=== PATIENT | male | born 1935 | race American Indian/Alaskan Native ===

== ENCOUNTER 2017-03-29 13:45 | Outpatient (CLI) | payer MEDICARE ==
[2017-03-29 14:25] LABS: Blood Urea Nitrogen 17 mg/dL (9-20)
--- NOTE | 2017-03-29 15:43 | Magnetic Resonance Report ---
MRI of the lumbar spine with and without contrast. History: Back pain, history of prostate cancer. Procedure: Sagittal T1-weighted, T2-weighted, inversion recovery images, axial T1 and T2-weighted images, and post gadolinium sagittal and axial T1-weighted images with fat saturation were used in the study. Findings: The T12-L1 and L1-2 levels are unremarkable. At the L2-3 level, there is a mild broad-based disc bulge, slightly eccentric to the left with left foraminal stenosis. At the L3-4 level, there is a moderate broad-based disc bulge with severe ligamentum flavum hypertrophy and mild facet joint DJD resulting in severe central canal stenosis. The AP dimension of the spinal canal at the disc level is 5 mm. Moderate disc space narrowing is present. At the L4-5 level, there is severe disc space narrowing with a broad-based disc bulge and ligamentum flavum hypertrophy. Again, there is severe central canal stenosis. At L5-S1, there is a mild central disc protrusion with no spinal stenosis or significant effacement of the subarachnoid space. On the postcontrast study, there are multiple areas of enhancement, primarily reactive at the endplates and adjacent to several Schmorl's nodes. No convincing metastatic pattern is present. The conus appears normal. Impression: 1. Severe central canal stenosis at the L3-4 and L4-5 levels related to disc bulges and posterior ligamentous hypertrophy. Mild discogenic changes are seen at L2-3 and L5-S1. 2. No evidence of compression fractures or other evidence of metastatic disease. Signal changes and scattered areas of enhancement in the vertebral bodies, especially at the endplates, are consistent with reactive discogenic changes.
== END 2017-03-29 13:46 | disposition home or self-care (01) ==
LOC: MRI 13:45
PROVIDERS: ATTEND Internal Medicine
DX: M48.06 Spinal stenosis, lumbar region (principal); M47.896 Other spondylosis, lumbar region
CPT/HCPCS: 36415; 72158; 82565; 84520; A9577

== ENCOUNTER 2018-12-05 09:27 | Outpatient (CLI) | payer MEDICARE ==
[2018-12-05 10:43] LABS: Hematocrit 34.5 % (35.5-45.6); Hemoglobin 11.8 gm/dl (11.8-15.2); Mean Corpuscular HGB Conc 34 % (32-34); Mean Corpuscular Volume 89 fl (84-94); Platelet Count 266 K/mm3 (140-440); Red Blood Count 3.87 M/mm3 (3.65-5.03); Red Cell Distribution Width 13.9 % (13.2-15.2)
[2018-12-05 11:14] LABS: Alanine Aminotransferase 12 units/L (7-56); Albumin 4.2 g/dL (3.9-5); BUN/Creatinine Ratio 19; Blood Urea Nitrogen 17 mg/dL (9-20); Calcium 9.5 mg/dL (8.4-10.2); Chol/HDL Ratio 3.79 %; HDL Cholesterol 58 mg/dL (40-59); Hemolysis Index 7; LDL Cholesterol,Direct 171 mg/dL (50-130)
== END 2018-12-05 09:28 | disposition home or self-care (01) ==
LOC: LAB 09:27
PROVIDERS: ATTEND Internal Medicine
DX: E03.9 Hypothyroidism, unspecified (principal); E78.2 Mixed hyperlipidemia; R73.03 Prediabetes; D64.9 Anemia, unspecified; I10 Essential (primary) hypertension
CPT/HCPCS: 36415; 80053; 80061; 82728; 83036; 84443; 85027

== ENCOUNTER 2019-04-18 09:04 | Outpatient (CLI) | payer MEDICARE ==
[2019-04-18 10:21] LABS: Chol/HDL Ratio 2.47 %
== END 2019-04-18 09:05 | disposition home or self-care (01) ==
LOC: LAB 09:04
PROVIDERS: ATTEND Internal Medicine
DX: E03.9 Hypothyroidism, unspecified (principal); E78.2 Mixed hyperlipidemia; I10 Essential (primary) hypertension; Z98.890 Other specified postprocedural states; Z90.79 Acquired absence of other genital organ(s)
CPT/HCPCS: 36415; 80061; 84443

== ENCOUNTER 2020-01-24 09:11 | Outpatient (CLI) | payer MEDICARE ==
[2020-01-24 10:07] LABS: Basophils # (Auto) 0.1 K/mm3 (0.0-0.1); Basophils % (Auto) 1.2 % (0.0-1.8); Eosinophils # (Auto) 0.2 K/mm3 (0.0-0.4); Eosinophils % (Auto) 3.4 % (0.0-4.3); Hematocrit 33.2 % (35.5-45.6); Hemoglobin 11.6 gm/dl (11.8-15.2); Lymphocytes # (Auto) 1.8 K/mm3 (1.2-5.4); Lymphocytes % (Auto) 28.7 % (13.4-35.0); Mean Corpuscular HGB Conc 35 % (32-34); Mean Corpuscular Volume 91 fl (84-94); Monocytes # (Auto) 0.7 K/mm3 (0.0-0.8); Monocytes % (Auto) 11.7 % (0.0-7.3); Platelet Count 256 K/mm3 (140-440); Red Blood Count 3.67 M/mm3 (3.65-5.03); Red Cell Distribution Width 14.1 % (13.2-15.2)
[2020-01-24 10:31] LABS: Alanine Aminotransferase 14 units/L (7-56); Albumin 4.1 g/dL (3.9-5); BUN/Creatinine Ratio 23; Blood Urea Nitrogen 25 mg/dL (9-20); Calcium 9.2 mg/dL (8.4-10.2); Chol/HDL Ratio 2.56 %; HDL Cholesterol 60 mg/dL (40-59); Hemolysis Index 3
[2020-01-24 11:38] LABS: LDL Cholesterol,Direct 92 mg/dL (50-130)
== END 2020-01-24 09:12 | disposition home or self-care (01) ==
LOC: LAB 09:11
PROVIDERS: ATTEND Internal Medicine
DX: E03.9 Hypothyroidism, unspecified (principal); E78.2 Mixed hyperlipidemia; R73.03 Prediabetes; E55.9 Vitamin D deficiency, unspecified; Z00.00 Encounter for general adult medical examination without abnormal findings
CPT/HCPCS: 36415; 80053; 80061; 82306; 82607; 83036; 84443; 85025

== ENCOUNTER 2020-06-09 09:19 | Outpatient (CLI) | payer MEDICARE ==
[2020-06-09 09:49] LABS: Basophils # (Auto) 0.1 K/mm3 (0.0-0.1); Basophils % (Auto) 1.4 % (0.0-1.8); Eosinophils # (Auto) 0.3 K/mm3 (0.0-0.4); Eosinophils % (Auto) 3.8 % (0.0-4.3); Hematocrit 31.7 % (35.5-45.6); Hemoglobin 10.7 gm/dl (11.8-15.2); Lymphocytes # (Auto) 1.6 K/mm3 (1.2-5.4); Lymphocytes % (Auto) 23.9 % (13.4-35.0); Mean Corpuscular HGB Conc 34 % (32-34); Mean Corpuscular Volume 93 fl (84-94); Monocytes # (Auto) 0.8 K/mm3 (0.0-0.8); Monocytes % (Auto) 12.5 % (0.0-7.3); Platelet Count 219 K/mm3 (140-440); Red Cell Distribution Width 13.9 % (13.2-15.2)
== END 2020-06-09 09:20 | disposition home or self-care (01) ==
LOC: LAB 09:19
PROVIDERS: ATTEND Internal Medicine
DX: D64.9 Anemia, unspecified (principal); E03.9 Hypothyroidism, unspecified
CPT/HCPCS: 36415; 82728; 83540; 84443; 85025

== ENCOUNTER 2021-07-16 11:44 | Emergency (ER) | payer MEDICARE ==
[2021-07-16] MEDS ORDERED: levETIRAcetam 1000 MG/NS 0.75% 1,000 MG/100 ML BAG IV ONE (11:53)
[2021-07-16] MEDS ORDERED: levETIRAcetam 500 MG TAB PO ONE (12:20)
[2021-07-16 12:41] VITALS: BP 113/63
[2021-07-16 13:30] LABS: Hematocrit 38.1 % (35.5-45.6); Hemoglobin 12.3 gm/dl (11.8-15.2); Mean Corpuscular HGB Conc 32 % (32-34); Mean Corpuscular Volume 90 fl (84-94); Platelet Count 526 K/mm3 (140-440); Red Blood Count 4.26 M/mm3 (3.65-5.03); Red Cell Distribution Width 14.3 % (13.2-15.2)
--- NOTE | 2021-07-16 14:21 | Emergency Department Report ---
ED General Adult HPI - General Chief complaint: Seizure Stated complaint: SEIZURE Time Seen by Provider: 07/16/21 11:53 Source: patient, EMS Mode of arrival: Stretcher Limitations: No Limitations - History of Present Illness Initial comments: The patient presents to the emergency department status post a seizure. Patient has a history of seizures and COPD. The patient is on 3 L O2 at home for COPD but at times refuses to wear it. On room air his O2 sats 89%. Patient is normally 93% on 3 L via nasal cannula. When O2 was applied in the ED O2 sats increased to 93%. Per the family patient has seizure while at home. Patient was recently diagnosed with Covid and is on dexamethasone. Patient denies abdominal pain, chest pain, shortness of breath. Also denies headache or weakness. -: Gradual Severity scale (0 -10): 0 Consistency: now resolved Improves with: none Worsens with: none Associated Symptoms: denies other symptoms Treatments Prior to Arrival: none - Related Data Previous Rx's Medication Instructions Recorded Last Taken Type Aspirin [Aspirin BABY CHEW TAB] 81 mg PO DAILY #30 tab 01/11/18 Unknown Rx AtorvaSTATin [Lipitor] 40 mg PO DAILY #30 tablet 01/11/18 Unknown Rx Calcium Citrate/Vitamin D3 1 tab PO DAILY #30 tab 01/11/18 1 Day Ago Rx [Calcium Cit 315 mg-D3 250 Unit] ~01/08/18 Levothyroxine [Synthroid] 125 mcg PO DAILY@0600 #30 tablet 01/11/18 Unknown Rx Valsartan/Hydrochlorothiazide 1 dose PO DAILY #30 tab 01/11/18 1 Day Ago Rx [Valsartan-Hctz 160-25 mg Tab] ~01/08/18 levoFLOXacin [Levaquin] 750 mg PO QDAY #5 tablet 07/16/21 Unknown Rx Allergies Allergy/AdvReac Type Severity Reaction Status Date / Time SWEETS AdvReac Hives Uncoded 07/16/21 11:48 ED Review of Systems ROS: Stated complaint: SEIZURE Other details as noted in HPI Comment: All other systems reviewed and negative Constitutional: denies: chills, fever Eyes: denies: eye pain, eye discharge, vision change ENT: denies: ear pain, throat pain Respiratory: denies: cough, shortness of breath, wheezing Cardiovascular: denies: chest pain, palpitations Endocrine: no symptoms reported Gastrointestinal: denies: abdominal pain, nausea, diarrhea Genitourinary: denies: urgency, dysuria Musculoskeletal: denies: back pain, joint swelling, arthralgia Skin: denies: rash, lesions Neurological: denies: headache, weakness, paresthesias Psychiatric: denies: anxiety, depression Hematological/Lymphatic: denies: easy bleeding, easy bruising ED Past Medical Hx - Past Medical History Previous Medical History?: Yes Hx Hypertension: Yes Hx Seizures: Yes Additional medical history: thyroid disease, prostate Ca - Surgical History Additional Surgical History: prostates - Social History Smoking Status: Unknown if ever smoked Substance Use Type: None - Medications Home Medications: Home Medications Medication Instructions Recorded Confirmed Last Taken Type Aspirin [Aspirin BABY CHEW TAB] 81 mg PO DAILY #30 tab 01/11/18 Unknown Rx AtorvaSTATin [Lipitor] 40 mg PO DAILY #30 tablet 01/11/18 Unknown Rx Calcium Citrate/Vitamin D3 1 tab PO DAILY #30 tab 01/11/18 01/09/18 1 Day Ago Rx [Calcium Cit 315 mg-D3 250 Unit] ~01/08/18 Levothyroxine [Synthroid] 125 mcg PO DAILY@0600 #30 tablet 01/11/18 Unknown Rx Valsartan/Hydrochlorothiazide 1 dose PO DAILY #30 tab 01/11/18 1 Day Ago Rx [Valsartan-Hctz 160-25 mg Tab] ~01/08/18 levoFLOXacin [Levaquin] 750 mg PO QDAY #5 tablet 07/16/21 Unknown Rx ED Physical Exam - General Limitations: No Limitations General appearance: alert, in no apparent distress - Head Head exam: Present: atraumatic, normocephalic - Eye Eye exam: Present: normal appearance, PERRL, EOMI - ENT ENT exam: Present: mucous membranes moist - Neck Neck exam: Present: normal inspection - Respiratory Respiratory exam: Present: normal lung sounds bilaterally. Absent: respiratory distress - Cardiovascular Cardiovascular Exam: Present: regular rate, normal rhythm. Absent: systolic murmur, diastolic murmur, rubs, gallop - GI/Abdominal GI/Abdominal exam: Present: soft, normal bowel sounds. Absent: distended, tenderness - Rectal Rectal exam: Present: deferred - Extremities Exam Extremities exam: Present: normal inspection - Back Exam Back exam: Present: normal inspection - Neurological Exam Neurological exam: Present: alert, oriented X3, CN II-XII intact. Absent: motor sensory deficit - Psychiatric Psychiatric exam: Present: normal affect, normal mood - Skin Skin exam: Present: warm, dry, intact, normal color. Absent: rash ED Course Vital Signs 07/16/21 07/16/21 07/16/21 11:45 12:40 12:42 Temperature 97.5 F L 98.4 F Pulse Rate 105 H 73 Respiratory 16 18 Rate Blood Pressure 101/64 113/63 [Left] O2 Sat by Pulse 91 93 93 Oximetry ED Medical Decision Making - Lab Data Result diagrams: 07/16/21 12:28 07/16/21 12:28 Lab Results 07/16/21 Range/Units 12:28 WBC 21.8 H (4.5-11.0) K/mm3 RBC 4.26 (3.65-5.03) M/mm3 Hgb 12.3 (11.8-15.2) gm/dl Hct 38.1 (35.5-45.6) % MCV 90 (84-94) fl MCH 29 (28-32) pg MCHC 32 (32-34) % RDW 14.3 (13.2-15.2) % Plt Count 526 H (140-440) K/mm3 - Radiology Data Radiology results: report reviewed - Medical Decision Making Patient was given Keppra The patient likely has elevated white count due to being on Decadron 6 mg for Covid infection Critical care attestation.: If time is entered above; I have spent that time in minutes in the direct care of this critically ill patient, excluding procedure time. ED Disposition Clinical Impression: Seizure, Leukocytosis, COVID-19 Disposition: 01 HOME / SELF CARE / HOMELESS Is pt being admited?: No Does the pt Need Aspirin: No Condition: Stable Instructions: COVID-19 Frequently Asked Questions, Seizure, Adult, [id number], Seizure, Adult Additional Instructions: Return if worse Referrals: CHRISTY AMADOR MD [Staff Physician] - 3-5 Days Time of Disposition: 14:52
[2021-07-16 14:46] LABS: BUN/Creatinine Ratio 36; Blood Urea Nitrogen 47 mg/dL (9-20); Calcium 9.2 mg/dL (8.4-10.2); Hemolysis Index 6
--- NOTE | 2021-07-16 14:47 | XRay Report ---
XR chest 1V ap INDICATION / CLINICAL INFORMATION: elevated white count. COMPARISON: None available. FINDINGS: SUPPORT DEVICES: None. HEART /PULMONARY VASCULATURE: No significant abnormality. LUNGS / PLEURA: Prominent pulmonary airspace consolidation, most pronounced in the right mid and lowe r lung and left lung base. No sizable pleural effusion. No pneumothorax. ADDITIONAL FINDINGS: No significant additional findings. IMPRESSION: Findings most consistent with bilateral pneumonia, right greater than left. Signer Name: uQinten Oglesby MD Signed: 07/16/2021 2:43 PM Workstation Name: [id number]
[2021-07-16] MEDS ORDERED: levoFLOXacin 750 MG TAB PO ONE (14:55)
[2021-07-16 14:58] LABS: Total Cells Counted 100
[2021-07-16 14:59] LABS: Anisocytosis 1+; Platelet Estimate Consistent w Auto; Poikilocytosis 1+
[2021-07-16 15:01] LABS: Ovalocytes 1+
[2021-07-16 15:02] LABS: Giant Platelets Rare; Platelet Clumps Rare
== END 2021-07-16 16:29 | disposition home or self-care (01) ==
LOC: ED 11:44
DX: G40.909 Epilepsy, unspecified, not intractable, without status epilepticus (principal); D72.829 Elevated white blood cell count, unspecified; U07.1 COVID-19; Z91.018 Allergy to other foods; I10 Essential (primary) hypertension
CPT/HCPCS: 36415; 71045; 80048; 85007; 85025; 99284

== ENCOUNTER 2022-02-08 10:17 | Outpatient (CLI) | payer OTHER ==
[2022-02-08 12:23] LABS: Basophils # (Auto) 0.1 K/mm3 (0.0-0.1); Basophils % (Auto) 1.2 % (0.0-1.8); Eosinophils # (Auto) 0.2 K/mm3 (0.0-0.4); Eosinophils % (Auto) 3.2 % (0.0-4.3); Hematocrit 30.1 % (35.5-45.6); Hemoglobin 10.2 gm/dl (11.8-15.2); Lymphocytes # (Auto) 1.5 K/mm3 (1.2-5.4); Lymphocytes % (Auto) 23.2 % (13.4-35.0); Mean Corpuscular HGB Conc 34 % (32-34); Mean Corpuscular Volume 90 fl (84-94); Monocytes # (Auto) 0.8 K/mm3 (0.0-0.8); Monocytes % (Auto) 12.2 % (0.0-7.3); Platelet Count 194 K/mm3 (140-440); Red Blood Count 3.35 M/mm3 (3.65-5.03); Red Cell Distribution Width 14.9 % (13.2-15.2)
[2022-02-08 12:57] LABS: Calcium 9.6 mg/dL (8.4-10.2); Chol/HDL Ratio 2.42 %
== END 2022-02-08 10:18 | disposition home or self-care (01) ==
LOC: LABHHL 10:17
PROVIDERS: ATTEND Internal Medicine
DX: Z00.00 Encounter for general adult medical examination without abnormal findings (principal); R73.03 Prediabetes; I10 Essential (primary) hypertension; E78.2 Mixed hyperlipidemia; E55.9 Vitamin D deficiency, unspecified; E03.9 Hypothyroidism, unspecified
CPT/HCPCS: 36415; 80053; 80061; 82306; 83036; 84443; 85025